=== PATIENT | male | born 1965 | race Two or more races ===

== ENCOUNTER 2016-07-19 16:05 | Emergency (ER) | payer OTHER ==
[~2016-07-19] VITALS: Ht 170.2 cm; Wt 100.0 kg
[~2016-07-19 16:05] MED LIST: LEDI1TAB PO; LISI-660 PO
[2016-07-19] MEDS ORDERED: DOXYCYCLINE 100 MG CAPSULE PO ONE (16:45)
[2016-07-19] MEDS ORDERED: IBUPROFEN 800 MG TABLET PO ONE (16:45)
[2016-07-19] MEDS ORDERED: BACITRACIN 0.9 GM PACKET OINTMENT TP ONE (17:00)
[2016-07-19 17:03] VITALS: BP 118/79
== END 2016-07-19 17:05 | disposition home or self-care (01) ==
LOC: EMS 16:10
DX: S31.151A Open bite of abdominal wall, left upper quadrant without penetration into peritoneal cavity, initial encounter (principal); I10 Essential (primary) hypertension; Z88.0 Allergy status to penicillin; W54.0XXA Bitten by dog, initial encounter; Y93.89 Activity, other specified; Y92.89 Other specified places as the place of occurrence of the external cause; Y99.8 Other external cause status
CPT/HCPCS: 99284

== ENCOUNTER 2022-12-10 18:25 | Emergency (ER) | payer OTHER ==
[~2022-12-10] VITALS: Ht 175.3 cm; Wt 100.0 kg
[~2022-12-10 18:25] MED LIST changes: -LEDI1TAB PO; -LISI-660 PO; +LISI-892 PO
[2022-12-10] MEDS ORDERED: ACETAMINOPHEN 325 MG TABLET PO ONE (20:15)
[2022-12-10 21:30] VITALS: BP 132/78; PULSE 70; RESP 18; TEMP 98.3
== END 2022-12-11 03:00 | disposition home or self-care (01) ==
LOC: EMS 18:26
DX: M54.50 Low back pain, unspecified (principal); I10 Essential (primary) hypertension; K75.9 Inflammatory liver disease, unspecified; Z88.0 Allergy status to penicillin
CPT/HCPCS: 72131; 99284